=== PATIENT | male | born 1955 | race Two or more races ===

== ENCOUNTER 2019-04-07 04:27 | Emergency (ER) | payer OTHER ==
[~2019-04-07] VITALS: Ht 188 cm; Wt 111.2 kg
[2019-04-07 04:35] VITALS: Ht 188 cm; Wt 111.2 kg
[2019-04-07 05:49] VITALS: BP 123/79
== END 2019-04-07 05:49 | disposition home or self-care (01) ==
LOC: ED 04:27
DX: L23.9 Allergic contact dermatitis, unspecified cause (principal); I10 Essential (primary) hypertension; Z88.0 Allergy status to penicillin
CPT/HCPCS: J1200; J2930; J3490